=== PATIENT | male | born 1995 | race Hispanic/Latino ===

== ENCOUNTER 2017-05-03 18:38 | Emergency (ER) | payer MEDICAID ==
[2017-05-03 18:43] VITALS: BP 119/73; PULSE 97; RESP 16; TEMP 98.2; O2SAT 98
[2017-05-03] MEDS ORDERED: Dextrose 5%/0.45% NS 1,000 ML IV SCH (19:30)
[2017-05-03 20:06] LABS: BASO # 0.1 K/uL (0.0-0.2); BASO % 0.5 % (0.0-2.0); EOS # 0.3 K/uL (0.0-0.7); EOS % 2.3 % (0.0-4.0); HEMATOCRIT 46.8 % (35.0-51.0); LYMPH # 1.7 K/uL (1.0-4.3); LYMPH % 12.6 % (20.0-40.0); MEAN CELL VOLUME 89.7 fl (80.0-94.0); MEAN CORPUSCULAR HEMOGLOBIN 30.1 pg (27.0-31.0); MEAN CORPUSCULAR HGB CONC 33.6 g/dL (33.0-37.0); MEAN PLATELET VOLUME 8.4 fl (7.2-11.7); MONO % 7.7 % (0.0-10.0); NEUT # 10.2 K/uL (1.8-7.0); NEUT % 76.9 % (50.0-75.0); RED CELL DISTRIBUTION WIDTH 12.7 % (11.5-14.5); WHITE BLOOD COUNT 13.3 K/uL (4.8-10.8)
[2017-05-03 20:14] LABS: ALB/GLOB RATIO 1.4 (1.0-2.1); ALCOHOL SERUM < 10 mg/dl (0-10); ALKALINE PHOSPHATASE 65 U/L (38-126); ALT/SGPT 53 U/L (21-72); AST/SGOT 27 U/L (17-59); BILIRUBIN,TOTAL 0.8 mg/dl (0.2-1.3); BLOOD UREA NITROGEN 14 mg/dl (9-20); CALCIUM 9.6 mg/dL (8.4-10.2); CARBON DIOXIDE 25 mmol/L (22-30); CHLORIDE 104 mmol/L (98-107); GFR AFRICAN-AMERICAN > 60; GLUCOSE,RANDOM 104 mg/dL (75-110); POTASSIUM 4.4 MMOL/L (3.6-5.0); SODIUM 141 mmol/l (132-148); TOTAL PROTEIN 7.8 G/DL (6.3-8.2)
--- NOTE | 2017-05-03 20:18 | ED PDOC ---
Syncope/Near Syncope/Dizziness Time Seen by Provider: 05/03/17 19:09 Chief Complaint (Nursing): Dizziness/Lightheaded Chief Complaint (Provider): Weakness and Dizziness History Per: Patient History/Exam Limitations: no limitations Onset/Duration Of Symptoms: Mins (30) Current Symptoms Are (Timing): Better Activity At Onset Of Symptoms: Had Just Stood up, Exertional Activity Associated Symptoms Preceding Syncopal Episode: Lightheadedness Fall Associated With With Symptoms: No Severity: Moderate Additional History Per: Patient Additional Complaint(s): 21 y/o male - he was doing squats in gym class and when he went to stand he felt sudden onset dizziness, nausea, as well as transient vision change that have largely resolved at this time. Denies syncope or fall, neck pain, fever, cough, shortness of breath, chest pain, or abdominal pain. Patient reports that he has had "head rushes" in the past, but denies ever experiencing nausea. Today, he has had little to eat or drink. Past Medical History Vital Signs: Last Vital Signs Temp 98.2 F 05/03/17 18:41 Pulse 97 H 05/03/17 18:41 Resp 16 05/03/17 18:41 BP 119/73 05/03/17 18:41 Pulse Ox 98 05/03/17 18:41 - Medical History PMH: Asthma - Surgical History Surgical History: No Surg Hx - Family History Family History: States: Unknown Family Hx - Social History Current smoker - smoking cessation education provided: No Ex-Smoker (has not smoked in the last 12 months): No Alcohol: None Drugs: Denies - Allergies Allergies/Adverse Reactions: Allergies Allergy/AdvReac Type Severity Reaction Status Date / Time No Known Allergies Allergy Verified 05/03/17 18:41 Review of Systems ROS Statement: Except As Marked, All Systems Reviewed And Found Negative Constitutional: Positive for: Weakness Neurological: Positive for: Dizziness Physical Exam - Reviewed Nursing Documentation Reviewed: Yes Vital Signs Reviewed: Yes - Physical Exam Appears: Positive for: Well, Non-toxic, No Acute Distress Head Exam: Positive for: ATRAUMATIC, NORMAL INSPECTION, NORMOCEPHALIC Skin: Positive for: Normal Color, Warm, DRY Eye Exam: Positive for: EOMI, Normal appearance, PERRL ENT: Positive for: Normal ENT Inspection Neck: Positive for: Normal, Painless ROM Cardiovascular/Chest: Positive for: Regular Rate, Rhythm Respiratory: Positive for: CNT, Normal Breath Sounds Gastrointestinal/Abdominal: Positive for: Normal Exam, Bowel Sounds, Soft Back: Positive for: Normal Inspection Extremity: Positive for: Normal ROM Neurologic/Psych: Positive for: Alert, Oriented - Laboratory Results Result Diagrams: 05/03/17 19:26 05/03/17 20:05 - ECG ECG: Positive for: Interpreted By Me, Viewed By Me ECG Rhythm: Positive for: Sinus Rhythm (80), 1st Degree Heart Block Interpretation Of Abn EK:11: NSR 80 bpm, 1st degree AV block O2 Sat by Pulse Oximetry: 98 (RA) Pulse Ox Interpretation: Normal Medical Decision Making Medical Decision Making: Impression: Dizziness in the setting of nausea and weakness Plan: - Labs - Accucheck - EKG Accucheck is 61 patient given 1L D5. Labs reviewed and there are no clinically significant findings. UDS was positive for opioids, and the results were discussed with the patient who categorically denied any opioids. He reports that he did eat a poppy seed bagel and reports that this is the cause of the UDS finding. Patient counseled on opioid abuse, which he again denies. Patient discharged in stable condition. Attestation Scribe Attestation: Documented by Natali Salinas acting as a scribe for Pasha Kauffman MD. Scribe Attestation: All medical record entries made by the Scribe were at my direction and personally dictated by me. I have reviewed the chart and agree that the record accurately reflects my personal performance of the history, physical exam, medical decision making, and the department course for this patient. I have also personally directed, reviewed, and agree with the discharge instructions and disposition. Disposition - Clinical Impression Clinical Impression: Dizziness, Hypoglycemia - Patient ED Disposition Is Patient to be Admitted: No Doctor Will See Patient In The: Office Counseled Patient/Family Regarding: Studies Performed, Diagnosis, Need For Followup - Disposition Disposition: Routine/Home Disposition Time: 21:12 Condition: IMPROVED Instructions: Non-diabetic Hypoglycemia (ED), Lightheadedness (ED) Forms: [employer] ([place])
--- NOTE | 2017-05-04 08:27 | CARD ---
APPROVED REPORT EKG Measurement Heart [id number] MD [id number] <Conclusion> Sinus rhythm with 1st degree AV block Otherwise normal ECG
== END 2017-05-03 21:40 | disposition home or self-care (01) ==
LOC: H.ER 18:38
DX: R42 Dizziness and giddiness (principal); R73.9 Hyperglycemia, unspecified; J45.909 Unspecified asthma, uncomplicated
CPT/HCPCS: 80053; 80320; 80324; 80345; 80346; 80349; 80353; 80358; 80361; 82948; 83992; 85025; 93005; 99285; J7042